=== PATIENT | male | born 1960 | race Caucasian/White ===

== ENCOUNTER → 2024-11-06 11:11 | Outpatient (REF) | payer OTHER, SELFPAY | LOC: HWRAD 11:11 | PROVIDERS: ATTENDING PHYSICIAN Family Medicine | DX: R31.9 Hematuria, unspecified (principal) | CPT/HCPCS: 76770 ==

== ENCOUNTER → 2024-11-12 15:08 | Outpatient (REF) | payer OTHER, SELFPAY ==
[2024-11-12 16:49] LABS: Blood Urea Nitrogen 19 mg/dl (9-20); Calcium 9.9 mg/dl (8.4-10.2); Carbon Dioxide 24 mmol/L (22-30); Chloride 103 mmol/L (98-107); Glucose 100 mg/dl (70-99); Potassium 4.5 mmol/L (3.5-5.1); Sodium 135 mmol/L (135-145); eGFR > 60.00
== END ==
LOC: REG 15:08
PROVIDERS: ATTENDING PHYSICIAN Specialist; FAMILY PHYSICIAN Family Medicine
DX: Z01.818 Encounter for other preprocedural examination (principal)
CPT/HCPCS: 36415; 80048

== ENCOUNTER 2024-11-15 19:37 | Emergency (ER) | payer OTHER, SELFPAY ==
[2024-11-15 19:42] VITALS: BP 179/107
[2024-11-15 21:05] VITALS: BMI 34.3
[2024-11-15] MEDS: OMNIPAQUE 50 ML PO (22:04)
[2024-11-15] MEDS: NUPERCAINAL 1% OINTMENT 1 APPLIC TOPICAL (22:21)
--- NOTE | 2024-11-15 22:25 | ED.GENMED ---
History of Present Illness
<Ludwin Doshi MD - Last Filed: 11/15/24 23:42>
General
Chief Complaint: Anal/Rectal Problem
Source: patient and spouse
Exam Limitations: none
Time Seen by Provider: 11/15/24 21:32
Nursing documentation reviewed up to this point in time: agreed with
History of Present Illness
History of Present Illness:
Patient recently diagnosed with possible right renal mass on ultrasound, presents to ED secondary to difficulty with bowel movements and straining during bowel movements over the past 2 weeks. This afternoon, after unsuccessful bowel movement
attempt, when he wiped with toilet paper, he noted blood, along with 'a lump' on top of his buttock. He denies abdominal pain. Denies nausea or vomiting. Denies trauma. Denies previous history of similar symptoms. Patient does not take any
blood thinning medications. Denies dizziness or weakness. Denies recent change in diet.
Past History
<Ludwin Doshi MD - Last Filed: 11/15/24 23:42>
Past History
ED Past Medical History: None
Social History
Tobacco: Non-smoker
Alcohol: Occasional
Personal:
Living: with family
Employment: Employed
Family History
Family History: Negative Diabetes
Review of Systems
<Ludwin Doshi MD - Last Filed: 11/15/24 23:42>
Review of Systems
Allergies reviewed?: Yes
All Other Systems: ROS reviewed and negative except as documented in HPI and ROS
Constitutional: Reports no symptoms; Denies fever or chills
Respiratory: Reports no symptoms
Cardiac: Reports no symptoms
ABD/GI: Reports constipated; Denies abdominal pain or vomiting
Musculoskeletal: Reports no symptoms
Skin: Reports no symptoms
Neurological: Reports no symptoms; Denies weakness
Phy Exam
<Ludwin Doshi MD - Last Filed: 11/15/24 23:42>
Physical Exam
Physical Exam:
Physical Exam
General: no apparent distress, not acutely ill. afebrile
Head: nc/at. eomi
Neck: supple. no meningeal signs.
Abdomen: normal bowel sounds. not tender. Rectal exam: external hemorrhoid noted with opened hemorrhoid noted with minimal bleeding at 12 o'clock, nonthrombosed
Neuro: alert and oriented x 3. no focal neurological deficits
Skin: no rash
Psychiatric: well kept. interactive and cooperative
Extremities: no edema. no calf tenderness.
Course
<Ludwin Doshi MD - Last Filed: 11/15/24 23:42>
Orders/Labs/Results
Orders:
Orders
11/15/24 21:56
Iohexol [Omnipaque] See Protocol PO NOW STA
11/15/24 22:07
Dibucaine [Nupercainal 1% Ointment] See Dose Instructions TOPICAL NOW STA
11/15/24 22:14
Basic Metabolic Panel Urgent
Complete Blood Count/No Diff Urgent
11/16/24 00:00
CT Abd/pel W Iv And Oral Contr Urgent
Reason For Exam: abdominal discomfort w constipation
Abnormal Lab Results
11/15/24
22:14
WBC 14.7 H 10^3/uL
(4.8-10.8)
Hgb 12.7 L g/dL
(13.0-18.0)
Hct 38.4 L %
(39.0-52.0)
MCV 79.5 L fL
(80.0-94.0)
MCH 26.3 L pg
(27.0-31.0)
Sodium 134 L mmol/L
(135-145)
BUN 29 H mg/dl
(9-20)
Glucose 121 H mg/dl
(70-99)
11/15/24 22:14
11/15/24 22:14
Vital Signs
Initial and Last Documented VS:
Initial Vital Signs
Temp Pulse Resp BP Pulse Ox
98.7 F 116 16 179/107 99
11/15/24 19:42 11/15/24 19:42 11/15/24 19:42 11/15/24 19:42 11/15/24 19:42
Last Documented Vital Signs
Temp Pulse Resp BP Pulse Ox
98.7 F 90 20 147/91 97
11/15/24 19:42 11/15/24 23:15 11/15/24 23:15 11/15/24 23:00 11/15/24 23:15
<Deirdre Herrera, DO - Last Filed: 11/16/24 01:31>
Orders/Labs/Results
Orders:
Orders
11/15/24 21:56
Iohexol [Omnipaque] See Protocol PO NOW STA
11/15/24 22:07
Dibucaine [Nupercainal 1% Ointment] See Dose Instructions TOPICAL NOW STA
11/15/24 22:14
Basic Metabolic Panel Urgent
Complete Blood Count/No Diff Urgent
11/16/24 00:00
CT Abd/pel W Iv And Oral Contr Urgent
Reason For Exam: abdominal discomfort w constipation
Abnormal Lab Results
11/15/24
22:14
WBC 14.7 H 10^3/uL
(4.8-10.8)
Hgb 12.7 L g/dL
(13.0-18.0)
Hct 38.4 L %
(39.0-52.0)
MCV 79.5 L fL
(80.0-94.0)
MCH 26.3 L pg
(27.0-31.0)
Sodium 134 L mmol/L
(135-145)
BUN 29 H mg/dl
(9-20)
Glucose 121 H mg/dl
(70-99)
11/15/24 22:14
11/15/24 22:14
Vital Signs
Initial and Last Documented VS:
Initial Vital Signs
Temp Pulse Resp BP Pulse Ox
98.7 F 116 16 179/107 99
11/15/24 19:42 11/15/24 19:42 11/15/24 19:42 11/15/24 19:42 11/15/24 19:42
Last Documented Vital Signs
Temp Pulse Resp BP Pulse Ox
98.7 F 90 20 147/91 97
11/15/24 19:42 11/15/24 23:15 11/15/24 23:15 11/15/24 23:00 11/15/24 23:15
<Ludwin Doshi MD - Last Filed: 11/15/24 23:42>
*Pulse Oximetry
SaO2: 97
Oxygen Mode of Delivery: Room air
<Deirdre Herrera DO - Last Filed: 11/16/24 01:31>
*Radiology
Radiology exam reviewed: radiology read reviewed
*Pulse Oximetry
Patient hypoxic: no
*Critical Care Note
Total Time (30-74mins, 75-104mins- exclusive of procedures): Not Applicable
<Deirdre Herrera DO - Last Filed: 11/16/24 01:31>
Update Note
Update Note:
01:30
Patient continues to appear comfortable.
Abdomen is soft without appreciable tenderness.
CAT scan shows moderate to large stool burden consistent with constipation but no obstruction nor rectal fecal impaction.
There is also note of a large heterogenous enhancing and infiltrating mass involving the right renal pelvis and midportion and upper pole of the right kidney. Mass extends beyond the renal capsule into the perinephric space. There is also note of
regional lymphadenopathy and several pulmonary nodules concerning for pulmonary metastatic disease.
Patient and aware that renal mass is cancerous and plan is for surgical excision by Dr. Abad.
We discussed bowel regimen for constipation including continuing Colace and adding a daily MiraLAX.
Recommend he touch base with Dr. Abad's office in the morning to discuss next step in renal mass management.
ED Attending Note
<Ludwin Doshi MD - Last Filed: 11/15/24 23:42>
-
Portions of this chart may have been created with voice recognition software.� Occasional wrong word or��sound alike� substitutions may have occurred due to the inherent limitations of voice recognition software.
Discharge Plan
Departure
Patient Disposition: Home (Routine Discharge)
Date of Disposition: 11/16/24
Time of Disposition: 01:26
Patient with high blood pressure during this ER visit?: Yes
Condition: Good
Discharge Problem:
External hemorrhoid, Constipation, Right kidney mass
Instructions: Hemorrhoids (DC), How to Do a Sitz Bath, High-fiber diet, Constipation in adults - ED (DC), BLOOD PRESSURE
Prescriptions:
No Action
Prostate Medication
1 cap PO DAILY
Patient Comments:
Pt does not know name of medication
Referrals:
Keaton Odonnell MD [Active, ColoRectal]
Mariluz Dash MD [Family Provider, Family Practice]
Activity Restrictions/Additional Instructions:
As discussed, please follow-up with referred colorectal surgeon for further evaluation and treatment.
Call Dr. Abad's office tomorrow to discuss CAT scan results and next step in management of right kidney mass.
Continue Colace daily and along with this I want you to start MiraLAX 1 capful in 8 ounces of water daily.
Interventions
Interventions:
*Risk Screen - Suicide Last Done: 11/15/24 19:42
*General Assessment Last Done: 11/15/24 21:04
*Neglect/Abuse Screening Last Done: 11/15/24 19:42
*ED- Fall Risk Assessment Last Done: 11/15/24 21:04
*ED COVID-19 Vaccine History Last Done: 11/15/24 21:04
IC-Ivevaf-Snpprmrfph Assessment Last Done: 11/15/24 21:06
ED-Skin Assessment Last Done: 11/15/24 21:06
Discharge Date and Time
Print Language: IRAQI
[2024-11-15 22:33] LABS: Hematocrit 38.4 % (39.0-52.0); Hemoglobin 12.7 g/dL (13.0-18.0); Mean Corp Hgb Conc. 33.1 g/dL (33.0-37.0); Mean Corpuscular Volume 79.5 fL (80.0-94.0); Platelet Count 308 10^3/uL (130-400); Red Cell Dist. Width 13.8 % (11.5-14.5)
[2024-11-15 22:47] LABS: Blood Urea Nitrogen 29 mg/dl (9-20); Calcium 9.6 mg/dl (8.4-10.2); Carbon Dioxide 22 mmol/L (22-30); Chloride 104 mmol/L (98-107); Estimated Creatinine Clearance 84 ml/min; Glucose 121 mg/dl (70-99); Potassium 4.4 mmol/L (3.5-5.1); Sodium 134 mmol/L (135-145); eGFR > 60.00
[2024-11-15 22:54] VITALS: BP 149/89
[2024-11-15 23:00] VITALS: BP 147/91
[2024-11-16 00:18] VITALS: BP 145/93
[2024-11-16 01:00] VITALS: BP 147/90
== END 2024-11-16 02:01 | disposition home or self-care (01) ==
LOC: EMR 19:37
PROVIDERS: Emergency Medicine; EMERGENCY PHYSICIAN Emergency Medicine; FAMILY PHYSICIAN Family Medicine
DX: K64.4 Residual hemorrhoidal skin tags (principal); K59.00 Constipation, unspecified; N28.89 Other specified disorders of kidney and ureter; R91.1 Solitary pulmonary nodule; R03.0 Elevated blood-pressure reading, without diagnosis of hypertension
CPT/HCPCS: 99284; 74177; 80048; 85027; Q9967

== ENCOUNTER → 2024-11-23 13:59 | Outpatient (REF) | payer OTHER, SELFPAY | LOC: HWRAD 13:59 | PROVIDERS: ATTENDING PHYSICIAN Internal Medicine Hematology & Oncology; FAMILY PHYSICIAN Family Medicine | DX: C64.9 Malignant neoplasm of unspecified kidney, except renal pelvis (principal) | CPT/HCPCS: 71250 ==

== ENCOUNTER → 2024-12-01 10:29 | Outpatient (REF) | payer OTHER, SELFPAY | LOC: MRI 10:29 | PROVIDERS: ATTENDING PHYSICIAN Internal Medicine Hematology & Oncology; FAMILY PHYSICIAN Family Medicine | DX: N28.89 Other specified disorders of kidney and ureter (principal) | CPT/HCPCS: 70030; 72158; 72197; A9575 ==

== ENCOUNTER → 2024-12-07 09:11 | Outpatient (REF) | payer OTHER, SELFPAY | LOC: RAD 09:11 | PROVIDERS: ATTENDING PHYSICIAN Internal Medicine Hematology & Oncology; FAMILY PHYSICIAN Family Medicine | DX: C64.9 Malignant neoplasm of unspecified kidney, except renal pelvis (principal) | CPT/HCPCS: 78306; A9503 ==

== ENCOUNTER → 2025-02-06 11:50 | Outpatient (REF) | payer OTHER, SELFPAY | LOC: RAD 11:50 | PROVIDERS: ATTENDING PHYSICIAN Internal Medicine Hematology & Oncology; FAMILY PHYSICIAN Family Medicine | DX: C64.9 Malignant neoplasm of unspecified kidney, except renal pelvis (principal) | CPT/HCPCS: 71250 ==